=== PATIENT | male | born 1945 | race Caucasian/White ===

== ENCOUNTER 2018-04-22 05:39 | Inpatient (IN) ==
[2018-04-22] MEDS ORDERED: VANCOMYCIN INJ 1,000 MG in SODIUM CHLORIDE 0.9% 250 ML IV ONE ×2 (06:00→17:30)
[2018-04-22] MEDS ORDERED: ceFAZolin 1,000 MG in SYRINGE 1 EACH IV ONE (06:00)
[2018-04-22] MEDS ORDERED: ceFAZolin 1,000 MG VIAL ONE (06:07)
[2018-04-22] MEDS ORDERED: VANCOMYCIN 1,000 MG VIAL ONE (06:07)
[2018-04-22] MEDS ORDERED: LACTATED RINGERS 1,000 ML IV SCH (06:30)
[2018-04-22] MEDS ORDERED: BACITRACIN OINT 0.9 GM PACK TOP ONE (06:33)
[2018-04-22] MEDS ORDERED: TRANEXAMIC ACID 1,000 MG/10 ML VIAL ONE (06:33)
[2018-04-22 08:52] LABS: Apearance,Urine CLEAR (Clear); Bilirubin,Urine Negative (Negative); Blood, Urine Negative (Negative); Glucose,Urine (UA) Negative (Negative); Ketones,Urine Negative (Negative); Mucus,Urine Occasional /LPF (Occasional); Nitrite,Urine Negative (Negative); Protein,Urine Negative; RBC,Urine 1 /HPF (0-4); Urine Color Yellow (Yellow); Urine Specific Gravity 1.012 (1.001-1.035); Urine Urobilinogen < 2.0 EU/DL (0.2-1.0); WBC,Urine 1 /HPF (0-6)
[2018-04-22] MEDS ORDERED: ONDANSETRON 4 MG/2 ML VIAL IV PRN (09:01)
[2018-04-22] MEDS ORDERED: diphenhydrAMINE CAP 25 MG CAPSULE PO PRN (09:01)
[2018-04-22] MEDS ORDERED: oxyCODONE IR 5 MG TABLET PO PRN (09:01)
[2018-04-22] MEDS ORDERED: MORPHINE 4 MG/1 ML VIAL IV PRN ×2 (09:01)
[2018-04-22] MEDS ORDERED: oxyCODONE/ACETAMINOPHEN 5-325 MG TABLET PO PRN (09:01)
[2018-04-22] MEDS ORDERED: MAGNESIUM HYDROXIDE SUSP 30 ML UDCUP PO PRN (09:01)
[2018-04-22] MEDS ORDERED: ePHEDrine 50 MG/ML AMP ONE (09:05)
[2018-04-22] MEDS ORDERED: PROPOFOL 200 MG/20 ML VIAL IV ONE (09:05)
[2018-04-22] MEDS ORDERED: MIDAZOLAM 2 MG/2 ML VIAL ONE (09:05)
[2018-04-22] MEDS ORDERED: SODIUM CHLORIDE 0.9% 200 ML IV ONE (09:05)
[2018-04-22] MEDS ORDERED: PHENYLEPHRINE 1 MG/10 ML SYRINGE IV ONE (09:05)
[2018-04-22] MEDS ORDERED: fentaNYL 100 MCG/2 ML VIAL ONE (09:05)
[2018-04-22] MEDS ORDERED: BUPIVACAINE SPINAL 0.75% 2 ML AMP SPINAL ONE (09:38)
[2018-04-22] MEDS: LACTATED RINGERS 1,000 ML IV SCH (10:09)
[2018-04-22] MEDS: KETOROLAC 30 MG/1 ML VIAL IV SCH ×3 (10:24→21:56)
[2018-04-22] MEDS: PREGABALIN 75 MG CAPSULE PO SCH (10:24)
[2018-04-22] MEDS: ACETAMINOPHEN 500 MG TABLET PO SCH ×2 (12:16→19:47)
[2018-04-22] MEDS: ceFAZolin 2,000 MG in PREMIX 1 EACH IV SCH ×2 (12:16→21:56)
[2018-04-22] MEDS: oxyCODONE IR 5 MG TABLET PO PRN ×2 (16:20→22:04)
[2018-04-22] MEDS: ZALEPLON 5 MG CAPSULE PO PRN (21:56)
[2018-04-22] MEDS: amLODIPine 10 MG TABLET PO SCH (21:56)
[2018-04-22] MEDS: CARVEDILOL 12.5 MG TABLET PO SCH (21:56)
[2018-04-22] MEDS: DOCUSATE SODIUM 100 MG CAPSULE PO SCH (21:56)
[2018-04-22] MEDS: FONDAPARINUX 2.5 MG/0.5 ML SYRINGE SUBCUT SCH (21:57)
[2018-04-23] MEDS: ACETAMINOPHEN 500 MG TABLET PO SCH ×2 (00:46→07:42)
[2018-04-23] MEDS: LACTATED RINGERS 1,000 ML IV SCH (00:46)
[2018-04-23] MEDS: KETOROLAC 30 MG/1 ML VIAL IV SCH (02:42)
[2018-04-23 06:10] LABS: Basophils % 0.5 % (0.0-0.8); Eosinophils # 0.3 10*3/uL (0.0-0.87); Eosinophils % 4.1 % (0.00-10.9); Hematocrit 31.5 VOL% (42.0-52.0); Hemoglobin 10.4 GM/DL (14.0-18.0); Immature Granulocytes % 0.5 %; Immature Granulocytes Absolute 0.03 #; Lymphocytes # 1.8 10*3/uL (1.4-4.0); Lymphocytes % 28.1 % (21.2-54.2); Mean Corpuscular Hemoglobin 30 PG (27-34); Mean Platelet Volume 11.6 FL (9.6-12.0); Monocytes # 0.8 10*3/uL (0.11-0.8); Neutrophils # 3.6 10*3/uL (1.4-7.4); Neutrophils % 54.8 % (38.7-73.9); Platelet Count 144 T/CUMM (130-400); Red Cell Distribution Width 13.8 % (9.3-17.3); White Blood Count 6.5 T/CUMM (4-12)
[2018-04-23 06:34] LABS: Calcium 7.7 MG/DL (8.5-10.1); Osmolality,Calculated 287.8 MOS/KG (273-304); Potassium 3.4 MMOL/L (3.5-5.1)
[2018-04-23] MEDS: PREGABALIN 75 MG CAPSULE PO SCH ×4 (09:00→21:02)
[2018-04-23] MEDS: CARVEDILOL 12.5 MG TABLET PO SCH ×2 (09:00→21:02)
[2018-04-23] MEDS: LISINOPRIL/HCTZ 20-12.5 MG TABLET PO SCH (09:01)
[2018-04-23] MEDS: POTASSIUM CHLORIDE 20 MEQ TABLET PO SCH ×2 (09:01→21:03)
[2018-04-23] MEDS: DOCUSATE SODIUM 100 MG CAPSULE PO SCH ×2 (09:01→21:03)
[2018-04-23] MEDS ORDERED: ACETAMINOPHEN 325 MG TABLET PO PRN (09:02)
[2018-04-23] MEDS: CELECOXIB 200 MG CAPSULE PO SCH (16:05)
[2018-04-23] MEDS: FONDAPARINUX 2.5 MG/0.5 ML SYRINGE SUBCUT SCH (21:02)
[2018-04-23] MEDS: amLODIPine 10 MG TABLET PO SCH (21:03)
[2018-04-23] MEDS: ZALEPLON 5 MG CAPSULE PO PRN (21:03)
[2018-04-24] MEDS: oxyCODONE/ACETAMINOPHEN 5-325 MG TABLET PO PRN ×2 (05:00→09:18)
[2018-04-24 05:23] LABS: Basophils % 0.3 % (0.0-0.8); Eosinophils # 0.2 10*3/uL (0.0-0.87); Eosinophils % 2.5 % (0.00-10.9); Hematocrit 33.1 VOL% (42.0-52.0); Hemoglobin 11.1 GM/DL (14.0-18.0); Immature Granulocytes % 0.3 %; Immature Granulocytes Absolute 0.03 #; Lymphocytes # 1.9 10*3/uL (1.4-4.0); Lymphocytes % 19.7 % (21.2-54.2); Mean Corpuscular HGB Conc 33.5 GM/DL (32-36); Mean Corpuscular Hemoglobin 30 PG (27-34); Mean Platelet Volume 12.4 FL (9.6-12.0); Monocytes % 10.7 % (1.7-12.7); Neutrophils # 6.3 10*3/uL (1.4-7.4); Neutrophils % 66.5 % (38.7-73.9); Platelet Count 168 T/CUMM (130-400); Red Blood Count 3.72 MC/CUMM (3.8-5.5); Red Cell Distribution Width 13.8 % (9.3-17.3); White Blood Count 9.4 T/CUMM (4-12)
[2018-04-24 05:33] LABS: Calcium 8.6 MG/DL (8.5-10.1); Osmolality,Calculated 281.3 MOS/KG (273-304); Potassium 3.7 MMOL/L (3.5-5.1)
[2018-04-24] MEDS: CELECOXIB 200 MG CAPSULE PO SCH (09:18)
[2018-04-24] MEDS: DOCUSATE SODIUM 100 MG CAPSULE PO SCH (09:18)
[2018-04-24] MEDS: PREGABALIN 75 MG CAPSULE PO SCH ×2 (09:18→14:58)
[2018-04-24] MEDS: CARVEDILOL 12.5 MG TABLET PO SCH (09:18)
[2018-04-24] MEDS: LISINOPRIL/HCTZ 20-12.5 MG TABLET PO SCH (09:18)
[2018-04-24 13:00] VITALS: BP 103/54
== END 2018-04-24 16:35 | disposition home health service (06) | DRG 470 ==
LOC: N.OR 05:39 → N.SDSINP 05:40 → N.3E 09:01
PROVIDERS: ADMIT Orthopaedic Surgery; ATTEND Orthopaedic Surgery

== ENCOUNTER 2020-12-06 18:16 | Inpatient (IN) ==
[2020-12-07] MEDS: hydrALAZINE 20 MG/1 ML VIAL IV PRN (05:15)
[2020-12-07] MEDS ORDERED: PROMETHAZINE 25 MG/1 ML VIAL IM PRN (06:59)
[2020-12-07] MEDS ORDERED: ACETAMINOPHEN 325 MG TABLET PO PRN (06:59)
[2020-12-07] MEDS ORDERED: ONDANSETRON 4 MG/2 ML VIAL IV PRN (06:59)
[2020-12-07] MEDS ORDERED: HYDROmorphone 2 MG/1 ML VIAL IV PRN (06:59)
[2020-12-07 07:36] LABS: Basophils % 0.3 % (0.0-0.8); Eosinophils # 0.1 10*3/uL (0.0-0.87); Eosinophils % 0.8 % (0.00-10.9); Hematocrit 47.2 VOL% (42.0-52.0); Hemoglobin 15.7 GM/DL (14.0-18.0); Immature Granulocytes % 0.4 %; Immature Granulocytes Absolute 0.04 #; Lymphocytes % 10.7 % (21.2-54.2); Mean Corpuscular HGB Conc 33.3 GM/DL (32-36); Mean Corpuscular Volume 89.1 FL (87-102); Mean Platelet Volume 11.6 FL (9.6-12.0); Monocytes % 8.1 % (1.7-12.7); Neutrophils % 79.7 % (38.7-73.9); Platelet Count 239 T/CUMM (130-400); Red Cell Distribution Width 12.3 % (9.3-17.3); White Blood Count 9.8 T/CUMM (4-12)
[2020-12-07 08:01] LABS: Albumin 3.3 G/DL (3.4-5.0); Bilirubin,Total 1.3 MG/DL (0.2-1.0); Calcium 9.3 MG/DL (8.5-10.1); Osmolality,Calculated 291.4 MOS/KG (273-304); Total Protein 8.2 G/DL (6.4-8.2)
[2020-12-07 08:03] LABS: Potassium 2.4 MMOL/L (3.5-5.1)
[2020-12-07] MEDS: LACTATED RINGERS 1,000 ML IV SCH ×3 (09:06→22:06)
[2020-12-07] MEDS: POTASSIUM CHLORIDE RIDER 10 MEQ in PREMIX 1 EACH IV PRN ×5 (09:12→18:25)
[2020-12-07] MEDS: PANTOPRAZOLE 40 MG TABLET PO SCH (09:13)
[2020-12-08 06:26] LABS: Basophils % 0.3 % (0.0-0.8); Eosinophils # 0.2 10*3/uL (0.0-0.87); Eosinophils % 1.5 % (0.00-10.9); Hemoglobin 15.8 GM/DL (14.0-18.0); Immature Granulocytes % 0.4 %; Immature Granulocytes Absolute 0.04 #; Lymphocytes # 2.2 10*3/uL (1.4-4.0); Mean Corpuscular HGB Conc 31.6 GM/DL (32-36); Mean Corpuscular Volume 91.6 FL (87-102); Mean Platelet Volume 11.4 FL (9.6-12.0); Monocytes % 8.9 % (1.7-12.7); Neutrophils % 66.9 % (38.7-73.9); Platelet Count 256 T/CUMM (130-400); Red Blood Count 5.46 MC/CUMM (3.8-5.5); Red Cell Distribution Width 12.3 % (9.3-17.3); White Blood Count 9.9 T/CUMM (4-12)
[2020-12-08 06:52] LABS: Albumin 3.1 G/DL (3.4-5.0); Bilirubin,Total 1.3 MG/DL (0.2-1.0); Calcium 9.8 MG/DL (8.5-10.1); Osmolality,Calculated 294.1 MOS/KG (273-304); Potassium 3.1 MMOL/L (3.5-5.1); Total Protein 7.8 G/DL (6.4-8.2)
[2020-12-08] MEDS ORDERED: LACTATED RINGERS 1,000 ML IV SCH (08:00)
[2020-12-08] MEDS: hydrALAZINE 20 MG/1 ML VIAL IV PRN (08:06)
[2020-12-08] MEDS: POTASSIUM CHLORIDE RIDER 10 MEQ in PREMIX 1 EACH IV PRN ×5 (08:06→19:00)
[2020-12-08] MEDS: PANTOPRAZOLE 40 MG TABLET PO SCH (08:06)
[2020-12-08] MEDS: PANTOPRAZOLE 40 MG VIAL IV SCH ×2 (08:27→22:08)
[2020-12-08] MEDS ORDERED: LIDOCAINE 2% 5 ML VIAL ONE (13:34)
[2020-12-08] MEDS ORDERED: propofoL 200 MG/20 ML VIAL IV ONE (13:34)
[2020-12-08] MEDS: SODIUM CHLOR 0.9% KCL 40 MEQ 40 MEQ/1,000 ML BAG IV SCH ×2 (15:05)
[2020-12-09] MEDS: SODIUM CHLOR 0.9% KCL 40 MEQ 40 MEQ/1,000 ML BAG IV SCH ×2 (01:08→09:44)
[2020-12-09] MEDS: PANTOPRAZOLE 40 MG VIAL IV SCH (08:07)
[2020-12-09] MEDS ORDERED: hydroCHLOROthiazide 12.5 MG CAPSULE PO SCH (09:00)
[2020-12-09] MEDS ORDERED: carvediloL 12.5 MG TABLET PO SCH (09:00)
[2020-12-09] MEDS ORDERED: SIMVASTATIN 20 MG TABLET PO SCH (09:00)
[2020-12-09] MEDS: PREGABALIN 75 MG CAPSULE PO SCH ×3 (09:43→16:49)
[2020-12-09] MEDS: POTASSIUM CHLORIDE RIDER 10 MEQ in PREMIX 1 EACH IV PRN ×5 (09:47→15:45)
[2020-12-09 16:06] VITALS: BP 153/88
[2020-12-09] MEDS ORDERED: amLODIPine 10 MG TABLET PO SCH (21:00)
[2020-12-09] MEDS ORDERED: METHOCARBAMOL 750 MG TABLET PO SCH (21:00)
== END 2020-12-09 17:21 | disposition hospice, home (50) | DRG 382 ==
LOC: N.5E 20:01 → N.2E 12-07 21:32
PROVIDERS: ADMIT Surgery; ATTEND Surgery